=== PATIENT | female | born 1970 | race Caucasian/White ===

== ENCOUNTER 2017-12-02 10:17 | Emergency (ER) | payer OTHER ==
--- NOTE | 2017-12-02 10:47 | EDPHY ---
H & P Stated Complaint: slip and fall/ankle injury Time Seen by Provider: 12/02/17 10:44 HPI/ROS: CHIEF COMPLAINT: Left foot pain HISTORY OF PRESENT ILLNESS: The patient is a 47-year-old female who was walking down the steps when she slipped and twisted her left ankle. It inverted. This happened around 830 this morning. She took ibuprofen with some improvement of her pain. She has bruising to the lateral aspect of her left foot. No pain over the metatarsal bones but does have pain over the tarsal bones. No pain over the malleolus or swelling. Normal capillary refill and movement distally. She denies other injuries. She denies hitting her head. REVIEW OF SYSTEMS: Constitutional: denies: chills, fever, recent illness, recent injury EENTM: denies: blurred vision, double vision, nose congestion Respiratory: denies: cough, shortness of breath Cardiac: denies: chest pain, irregular heart rate, lightheadedness, palpitations Gastrointestinal/Abdominal: denies: abdominal pain, diarrhea, nausea, vomiting, blood streaked stools Genitourinary: denies: dysuria, frequency, hematuria, pain Musculoskeletal: See HPI Skin: denies: lesions, rash, jaundice, bruising Neurological: denies: headache, numbness, paresthesia, tingling, dizziness, weakness Hematologic/Lymphatic: denies: blood clots, easy bleeding, easy bruising Immunologic/allergic: denies: HIV/AIDS, transplant EXAM: GENERAL: Well-appearing, well-nourished and in no acute distress. HEAD: Atraumatic, normocephalic. EYES: Pupils equal round and reactive to light, extraocular movements intact, sclera anicteric, conjunctiva are normal. ENT: TMs normal, nares patent, oropharynx clear without exudates. Moist mucous membranes. NECK: Normal range of motion, supple without lymphadenopathy or JVD. LUNGS: Breath sounds clear to auscultation bilaterally and equal. No wheezes rales or rhonchi. HEART: Regular rate and rhythm without murmurs, rubs or gallops. ABDOMEN: Soft, nontender, normoactive bowel sounds. No guarding, no rebound. No masses appreciated. BACK: No CVA tenderness, no spinal tenderness, step-offs or deformities EXTREMITIES: See HPI no other extremity injuries NEUROLOGICAL: Cranial nerves II through XII grossly intact. Normal speech, normal gait. 5/5 strength, normal movement in all extremities, normal sensation PSYCH: Normal mood, normal affect. SKIN: Warm, dry, normal turgor, no visible rashes or lesions. Source: Patient Exam Limitations: No limitations - Personal History LMP (Females 10-55): Over 28 Days Ago Current Tetanus/Diphtheria Vaccine: Yes Current Tetanus Diphtheria and Acellular Pertussis (TDAP): Yes Tetanus Vaccine Date: 2012 - Medical/Surgical History Hx Asthma: No Hx Chronic Respiratory Disease: No Hx Diabetes: No Hx Cardiac Disease: No Hx Renal Disease: No Hx Cirrhosis: No Hx Alcoholism: No Hx HIV/AIDS: No Hx Splenectomy or Spleen Trauma: No Other PMH: DENIES - Family History Significant Family History: No pertinent family hx - Social History Smoking Status: Former smoker Alcohol Use: Sober Drug Use: None Constitutional: Initial Vital Signs Temperature (C) 37.0 C 12/02/17 10:23 Heart Rate 75 12/02/17 10:23 Respiratory Rate 18 12/02/17 10:23 Blood Pressure 143/88 H 12/02/17 10:23 O2 Sat (%) 95 12/02/17 10:23 O2 Delivery Mode Room Air Allergies/Adverse Reactions: No Known Allergies Allergy (Verified 12/02/17 11:05) Home Medications: Medication Instructions Recorded NK [No Known Home Meds] 12/02/17 Medical Decision Making - Diagnostics Imaging: Discussed imaging studies w/ call centre supervisor Radiologist Procedures: Procedure: Splint placement. A posterior and stirrup splint was applied. After application of the splint I returned and re-examined the patient. The splint was adequately immobilizing the joint and distal to the splint the patient's circulation and sensation was intact. Patient was fitted with crutches. ED Course/Re-evaluation: 11:20 a.m. We discussed the patient's x-ray results. We will proceed with CT scanning to evaluate for calcaneus fracture. 12:[address] results were discussed. I discussed the case with Dr. Alvarez. He will plan to see the patient in clinic tomorrow. We will place her in a splint for now and nonweightbearing. She is happy with this plan and declines further workup or treatment. She declines pain medicine. No low back pain. Differential Diagnosis: Partial list of the Differential diagnosis considered include but were not limited to; ankle sprain, foot fracture and although unlikely based on the history and physical exam, I also considered low back injury, head injury. I discussed these differential diagnoses and the plan with the patient as well as the usual and expected course. The patient understands that the diagnosis is provisional and that in medicine we are not always correct and that further workup is often warranted. Usual and customary warnings were given. All of the patient's questions were answered. The patient was instructed to return to the emergency department should the symptoms at all worsen or return, otherwise to followup with the physician as we discussed. - Data Points Medications Given: Discontinued Medications Acetaminophen (Tylenol) 1,000 mg PO EDNOW ONE Stop: 12/02/17 12:49 Last Admin: 12/02/17 12:51 Dose: 1,000 mg Departure - Departure Disposition: Home, Routine, Self-Care Clinical Impression: Left navicular fracture of foot Qualifiers: Encounter type: initial encounter Fracture type: closed Fracture alignment: displaced Qualified Code(s): S92.252A - Displaced fracture of navicular [ scaphoid] of left foot, initial encounter for closed fracture Fracture of calcaneus, left, closed Qualifiers: Encounter type: initial encounter Calcaneus location: anterior process Fracture alignment: nondisplaced Qualified Code(s): S92.025A - Nondisplaced fracture of anterior process of left calcaneus, initial encounter for closed fracture Condition: Fair Instructions: Calcaneal Fracture (ED), Non Weight Bearing Activity (ED) Referrals: Anne-Marie Weeks MD [Primary Care Provider] - As per Instructions John Alvarez MD [Medical Doctor] - As per Instructions
[2017-12-02] MEDS ORDERED: ACETAMINOPHEN 500 MG TAB PO ONE (12:48)
[2017-12-02 13:09] VITALS: BP 147/94
== END 2017-12-02 13:06 | disposition home or self-care (01) ==
LOC: CED 10:17
DX: S92.252A Displaced fracture of navicular [scaphoid] of left foot, initial encounter for closed fracture (principal); S92.025A Nondisplaced fracture of anterior process of left calcaneus, initial encounter for closed fracture; Z87.891 Personal history of nicotine dependence; W01.0XXA Fall on same level from slipping, tripping and stumbling without subsequent striking against object, initial encounter; Y99.8 Other external cause status; Y93.01 Activity, walking, marching and hiking
CPT/HCPCS: 73610-PO; 73630-PO; 73700-PO